=== PATIENT | female | born 1980 | race Caucasian/White ===

== ENCOUNTER 2019-05-16 18:49 | Emergency (ER) | payer OTHER ==
[~2019-05-16] VITALS: Ht 147.3 cm; Wt 75.7 kg
[~2019-05-16 18:49] MED LIST: CIPR500T94 PO; DICL50TA4 PO; HYDR-3164 PO; LISI10TA2 PO; SULF1TAB24 PO
[2019-05-16 19:01] VITALS: BP 146/87
[2019-05-16] MEDS ORDERED: CYCL10TA2 PO ×2 (19:11→19:25)
[2019-05-16] MEDS ORDERED: METH4TAB2 PO ×2 (19:11→19:25)
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
[2019-05-16] MEDS ORDERED: methylPREDNISolone SOD SUCC PF 125 MG/2 ML VIAL. IM ONE (19:15)
[2019-05-16] MEDS ORDERED: KETOROLAC 60 MG/2 ML VIAL. IM ONE (19:15)
[2019-05-16] MEDS ORDERED: DICL50TA2 PO (19:25)
== END 2019-05-16 19:35 | disposition home or self-care (01) ==
LOC: MERGE 18:49 → ER 18:49
DX: M77.9 Enthesopathy, unspecified (principal); I10 Essential (primary) hypertension; Z98.51 Tubal ligation status
CPT/HCPCS: 96372; 99284; J1885; J2930